=== PATIENT | female | born 1955 | race Caucasian/White ===

== ENCOUNTER 2018-11-07 19:45 | Emergency (ER) | payer MEDICAID ==
[~2018-11-07] VITALS: Ht 165.1 cm; Wt 109.3 kg
[2018-11-07 19:45] VITALS: BP_SYST 221
--- NOTE | 2018-11-07 19:45 | NUR ---
Pt BIB BLS placed to ER bed 06, to gown, to residential monitor. Pt sent from [facility] r/t c/o headache, worse in severity since this AM. Per EMS, pt HR was elevated at 120 on scene. Pt AAOx3, c/o severe headache, no SOB or C/P, denies N/V. Pt B/P 221/128, HR 122 upon arrival. Pt states that she took her B/P meds this AM. Dr. Roman notified for MSE.
--- NOTE | 2018-11-07 19:55 | NUR ---
Dr. Roman at bedside.
[2018-11-07] MEDS ORDERED: hydrALAZINE HCL 20 MG/ML VIAL IVP ONE (20:00)
[2018-11-07] MEDS ORDERED: ACETAMINOPHEN 500 MG TABLET PO ONE (20:00)
--- NOTE | 2018-11-07 20:05 | NUR ---
# 22 gauge angiocath placed to Right Wrist. Use of asceptic technique. Opsite placed over site. Blood return noted. Blood for lab drawn from site. Flushed with 10 cc of normal saline. No evidence of infiltration noted. Patient tolerated well.
[2018-11-07] MEDS ORDERED: ONDANSETRON HCL 4 MG/2 ML VIAL IVP ONE (20:15)
--- NOTE | 2018-11-07 20:35 | NUR ---
Pt to CT via stretcher.
--- NOTE | 2018-11-07 20:45 | NUR ---
Pt returns from CT.
[2018-11-07 20:51] LABS: BASOPHILS # (AUTO) 0.1 K/uL (0.0-0.2); EOSINOPHILS # (AUTO) 0.2 K/uL (0.0-0.4); EOSINOPHILS % (AUTO) 2.2 % (0.0-4.0); HEMATOCRIT 48.7 % (36-48); LYMPHOCYTES # (AUTO) 2.6 K/uL (1.0-5.5); LYMPHOCYTES % (AUTO) 29.3 % (20.5-51.5); MEAN CORPUSCULAR HEMOGLOBIN 32 pg (27-31); MEAN CORPUSCULAR HGB CONC 35 % (32-36); MEAN CORPUSCULAR VOLUME 91 fL (79.0-98.0); MONOCYTES # (AUTO) 0.4 K/uL (0.0-1.0); MONOCYTES % (AUTO) 4.4 % (1.7-9.3); NEUTROPHILS # (AUTO) 5.6 K/uL (1.8-7.7); NEUTROPHILS % (AUTO) 63.1 % (40.0-70.0); PLATELET COUNT (AUTO) 295 K/uL (130-430); RED BLOOD CELL COUNT(AUTO) 5.38 MIL/uL (4.2-6.2); RED CELL DISTRIBUTION WIDTH 13.2 % (9.0-15.0); WHITE BLOOD COUNT (AUTO) 8.9 K/uL (4.8-10.8)
--- NOTE | 2018-11-07 20:52 | NUR ---
Pt moaning and continues to c/o severe headache. Dr. Romna notified
[2018-11-07 20:56] LABS: ANION GAP 17 (5-15); CALCIUM 10.2 mg/dL (8.4-11.0); CHLORIDE 97 mmol/L (98-107); CREATININE 0.91 mg/dL (0.55-1.30); GFR AFRICAN AMERICAN 80 mL/min (>90); GLUCOSE 291 mg/dL (70-99); SODIUM SERUM 138 mmol/L (136-145); UREA NITROGEN, BLOOD 10 mg/dL (8-21)
[2018-11-07] MEDS ORDERED: MORPHINE 4 MG/ML INJ. SYRINGE IVP ONE ×2 (21:00→23:15)
[2018-11-07] MEDS ORDERED: LABETALOL 100 MG/ 20ML VIAL IVP ONE (21:00)
--- NOTE | 2018-11-07 21:02 | NUR ---
Morphine 4 mg given IVP for pain.
[2018-11-07 21:04] LABS: ALANINE AMINOTRANSFERASE 70 U/L (12-78); ALBUMIN 3.9 g/dL (3.4-4.8); ASPARTATE AMINOTRANSFERASE 54 U/L (10-37); TOTAL BILIRUBIN 0.5 mg/dL (0.0-1.0)
[2018-11-07] MEDS ORDERED: LORazepam 1 MG TABLET PO ONE (21:30)
[2018-11-07] MEDS ORDERED: LORazepam 2 MG/ML VIAL (FOR ER USE) IVP ONE (21:30)
--- NOTE | 2018-11-07 21:42 | NUR ---
Pt continues to c/o 06/23 headache. Improvement noted to VSS, P 100, B/P 166/103. Dr. Roman notified.
[2018-11-07] MEDS ORDERED: POTASSIUM CHLORIDE 20 MEQ TAB.PRT.SR PO ONE (21:45)
--- NOTE | 2018-11-07 22:45 | NUR ---
Spoke with pt regarding transportation [facility]. Pt states that no family is available to pick her up. One sister lives in [place], the other she doesn't know her contact information.
--- NOTE | 2018-11-07 22:45 | NUR ---
Note rejimeg in ED - 11/07/18 at 2256 by ARACELI Spoke with pt regarding transportation back to [facility]. Pt states that no family is available to pick her up. One sister lives in [place], the other she doesn't know her contact information.
--- NOTE | 2018-11-07 22:50 | NUR ---
Pt report called to SALVADOR Knowles at [facility]. Eleni states that they use [facility] for transport ([phone]).
--- NOTE | 2018-11-07 23:00 | NUR ---
Pt c/o headache 02/21. Dr. Roman notified and pt to be medicated.
[2018-11-07 23:24] VITALS: BP_SYST 168
--- NOTE | 2018-11-07 23:24 | NUR ---
Patient given written and verbal discharge instructions and verbalizes understanding. ER MD discussed with patient the results and treatment provided. Patient in stable condition. ID arm band removed. IV catheter removed intact and dressing applied, no active bleeding. No Rx given. Patient educated on pain management and to follow up with PMD. Pain Scale 4/10. Opportunity for questions provided and answered. Medication side effect fact sheet provided.
== END 2018-11-07 23:24 | disposition home or self-care (01) ==
LOC: SED 19:45
DX: I16.0 Hypertensive urgency (principal); R00.0 Tachycardia, unspecified; R51 Headache; F41.9 Anxiety disorder, unspecified; E78.00 Pure hypercholesterolemia, unspecified; E11.9 Type 2 diabetes mellitus without complications
CPT/HCPCS: 36415; 70450; 80053; 84484; 85025; 93005; 96374; 96375; 96376; 99291; 99292; J0360; J2060; J2270; J2405; J3490; 99284; 99285